=== PATIENT | female | born 1990 | race Caucasian/White ===

== ENCOUNTER 2016-08-19 01:03 | Emergency (ER) | payer SELFPAY ==
[~2016-08-19] VITALS: Ht 160 cm; Wt 63.0 kg
[2016-08-19 01:04] VITALS: BP 128/79; PULSE 86; RESP 16; TEMP 97.9; O2SAT 98
[2016-08-19] MEDS ORDERED: AMOXICILLIN (TRIHYDRATE) 500 MG CAP PO ONE (01:45)
[2016-08-19] MEDS ORDERED: NAPROXEN 500 MG TAB PO ONE (01:45)
[2016-08-19] MEDS ORDERED: DICL50TA3 PO (01:51)
[2016-08-19] MEDS ORDERED: AMOX500T PO (01:51)
--- NOTE | 2016-08-19 01:55 | PD ---
HPI Chief Complaint: Oral / Dental Pain or Problem Time Seen by Provider: 01:51 Travel History International Travel<30 days: No Contact w/Intl Traveler<30days: No Traveled to known affect area: No History of Present Illness HPI 26-year-old white female presents to emergency department with complaints of dental pain. She's had pain in the left lower and right upper maxilla over the last several weeks. She's had problems with her teeth on-and-off for quite some time. She states that she's had open draining abscesses. She alleges she had called the dentist who advised to come to the hospital to get antibiotics before they can work on her teeth. She denies any fever or chills. Pain is moderate. Worse with palpation and chewing. Worse with cold. PFSH Past Medical History Narrative Medical Substance abuse, back injury Diminished Hearing: No Tetanus Vaccination: < 5 Years ?: Not LMP: DOES NOT GET Past Surgical History Narrative Surgical Lower back surgery Social History Alcohol Use: No Tobacco Use: Yes Substance Use: Yes Allergies-Medications (Allergen,Severity, Reaction): Coded Allergies: No Known Allergies (Unverified , 08/19/16) Reported Meds & Prescriptions Reported Meds & Active Scripts Active No Active Prescriptions or Reported Medications Review of Systems Except as stated in HPI: all other systems reviewed are Neg Physical Exam Narrative GENERAL: This is a well-nourished, well-developed patient, in no apparent distress. SKIN: No rashes, ecchymoses or lesions. Warm and dry. Patient has track torres on both upper extremities. HEAD: Atraumatic. Normocephalic. EYES: PERRL, EOMI, no discharge or injection. No scleral icterus. EARS: Clear NOSE: Nasal turbinates appear normal. THROAT: Mucosa pink and moist. Airway patent. The patient has diffuse periodontal disease with multiple, multiple, multiple dental cavities. She has gingival edema without obvious gross abscess. NECK: Trachea midline. supple, moves head freely. LUNGS: Clear to auscultation. CV: Regular in rhythm. ABDOMEN: Soft nontender. EXT: No clubbing cyanosis or edema. Data Data Last Documented VS Vital Signs Date Time Temp Pulse Resp B/P Pulse Ox O2 Delivery O2 Flow Rate FiO2 08/19/16 01:04 97.9 86 16 128/79 98 Orders Naproxen (Naprosyn) (1/17/17 01:45) Amoxicillin (Trimox) (08/19/16 01:45) MDM Medical Decision Making Medical Screen Exam Complete: Yes Emergency Medical Condition: Yes Medical Record Reviewed: Yes Differential Diagnosis MDM: Moderate Differential diagnoses: Dental abscess, dental caries, osteitis, cellulitis Narrative Course Patient is given amoxicillin 500 and Naprosyn 500 mg by mouth. This is dentalgia, dental caries Diagnosis Primary Impression: Dentalgia Additional Impression: Dental caries Patient Instructions: General Instructions Additional Instructions: Rest. [place] gargles. [place] oil on cotton balls. Diclofenac and amoxicillin follow-up with a dentist as soon as possible. And return to the ER if any problems. Med/Other Pt SpecificInfo: Prescription(s) given Scripts Amoxicillin 500 Mg Tab1,000 Mg PO BID #40 TAB Prov:Kavita Rae MD 08/19/[address] 50 Mg Tabdr50 Mg PO TID #21 TAB Prov:Kavita Rae MD 08/19/16 Disposition: 01 DISCHARGE HOME Condition: Stable Bhargav Moscoso Aug 19, 2016 01:55
== END 2016-08-19 03:05 | disposition home or self-care (01) ==
LOC: NEPB 01:03
DX: K02.9 Dental caries, unspecified (principal); Z72.0 Tobacco use
CPT/HCPCS: 99282

== ENCOUNTER 2016-11-10 11:20 | Emergency (ER) | payer OTHER ==
[~2016-11-10] VITALS: Ht 160 cm; Wt 65.0 kg
[~2016-11-10 11:20] MED LIST: AMOX500T PO; DICL50TA3 PO
[2016-11-10 11:21] VITALS: BP 166/84; PULSE 114; RESP 18; TEMP 98.8; O2SAT 98
[2016-11-10 11:37] VITALS: BP 131/78; PULSE 88; PULSE 92; RESP 16; O2SAT 98
[2016-11-10] MEDS ORDERED: SODIUM CHLOR 0.9% 1000 ML INJ 1,000 ML IV ONE (11:45)
[2016-11-10] MEDS ORDERED: SODIUM CHLORIDE 0.9% FLUSH 10 ML FLUSH IVF PRN (11:45)
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
[2016-11-10 12:38] LABS: BLOOD, URINE LARGE (NEG); COMMENT (UR) CULTURE INDICATED; CULTURE IF INDICATED CULTURE INDICATED; GLUCOSE,URINE NEG (NEG); KETONE, URINE NEG (NEG); MUCUS URINE FEW /lpf (OCC); NITRITE,URINE NEG (NEG); SQUAMOUS EPITHELIAL CELL URINE 41 /hpf (0-5)
[2016-11-10 12:39] LABS: URINE COLOR RED (YELLW/STRAW)
[2016-11-10 12:40] LABS: BACTERIA, URINE FEW /hpf
--- NOTE | 2016-11-10 12:51 | RADRPT ---
EXAM DATE/TIME: 11/10/2016 12:12 [facility] COMPARISON: No previous studies available for comparison. INDICATIONS : Chest pains midsternal with shortness of breath. MEDICAL HISTORY : None. SURGICAL HISTORY : None. ENCOUNTER: Initial ACUITY: 1 day PAIN SCORE: 08/12 LOCATION: Bilateral chest FINDINGS: A single view of the chest demonstrates the lungs to be symmetrically aerated without evidence of mas s, infiltrate or effusion. The cardiomediastinal contours are unremarkable. Osseous structures are intact. CONCLUSION: No acute disease. Rito Davis MD on November 10, 2016 at 12:50 Board Certified Radiologist. This report was verified electronically.
[2016-11-10 13:35] LABS: BICARBONATE 27.6 MEQ/L (21.0-32.0); POTASSIUM 4.1 MEQ/L (3.5-5.1)
[2016-11-10 13:53] LABS: AUTOMATED NEUTROPHIL # 7.2 TH/MM3 (1.8-7.7); BASOPHIL # 0.1 TH/MM3 (0-0.2); BASOPHIL % 0.6 % (0.0-2.0); EOSINOPHIL # 0.1 TH/MM3 (0-0.4); EOSINOPHIL % 0.9 % (0.0-4.0); HEMO FLAGS DIFF FINAL; LYMPH % 26.6 % (9.0-44.0); LYMPHOCYTE # 2.9 TH/MM3 (1.0-4.8); MEAN CELL VOLUME 84.7 FL (80.0-100.0); MEAN CORPUSCULAR HEMOGLOBIN 27.8 PG (27.0-34.0); MEAN CORPUSCULAR HGB CONC 32.8 % (32.0-36.0); MONO % 6.8 % (0.0-8.0); NEUT % 65.1 % (16.0-70.0); PLATELET COUNT 363 TH/MM3 (150-450); RED BLOOD COUNT 4.84 MIL/MM3 (4.00-5.30); RED CELL DISTRIBUTION WIDTH 19.4 % (11.6-17.2)
[2016-11-10 15:05] LABS: CHLAMYDIA PCR NOT DETECTED (NOT DETECT); NEISSERIA PCR NOT DETECTED (NOT DETECT)
== END 2016-11-10 14:26 | disposition home or self-care (01) ==
LOC: NEPD 11:20
DX: N94.6 Dysmenorrhea, unspecified (principal); J06.9 Acute upper respiratory infection, unspecified; N39.0 Urinary tract infection, site not specified; B96.89 Other specified bacterial agents as the cause of diseases classified elsewhere
CPT/HCPCS: 71010; 80048; 81001; 84703; 85025; 87086; 87210; 87491; 87591; 99284

== ENCOUNTER 2016-12-03 12:35 | Emergency (ER) | payer SELFPAY ==
[~2016-12-03] VITALS: Ht 162.6 cm; Wt 70.0 kg
[2016-12-03 12:36] VITALS: BP 125/76; PULSE 86; RESP 14; TEMP 98.3; O2SAT 98
--- NOTE | 2016-12-03 12:40 | PD ---
Physical Exam Time Seen by Provider: 12:39 Narrative 26 y/o female presents for evaluation of a painful mass on the left breast for the past few days, progressively getting worse. Vital signs reviewed. Seen at triage desk. Awaiting bed placement. Data Data Last Documented VS Vital Signs Date Time Temp Pulse Resp B/P Pulse Ox O2 Delivery O2 Flow Rate FiO2 12/03/16 12:36 98.3 86 14 125/76 98 MDM Medical Record Reviewed: Yes Supervised Visit with GANESH: No Scripts No Active Prescriptions or Reported Meds Baljinder Rubio December 03, 2016 12:40
[2016-12-03] MEDS ORDERED: MOTR200T4 PO (13:48)
--- NOTE | 2016-12-03 13:54 | PD ---
HPI Chief Complaint: Lump, Cyst, Hernia Time Seen by Provider: 13:48 Travel History International Travel<30 days: No Contact w/Intl Traveler<30days: No Traveled to known affect area: No History of Present Illness HPI 26-year-old female presents to the emergency Department with complaint of a large painful lump to her left breast that she noticed within the past few days and has been getting bigger. Denies fever, vomiting. Denies nipple discharge, skin change, skin dimpling. Says she's been having to pad of her right breast because the lump is so large. Has not taken any medications or tried any treatments to alleviate her symptoms. No known allergies. Has no other medical complaints. No other modifying factors or associated signs and symptoms. PFSH Past Medical History Diminished Hearing: No ?: Not LMP: 11/2016 Social History Alcohol Use: No Tobacco Use: Yes Substance Use: No Allergies-Medications (Allergen,Severity, Reaction): Coded Allergies: No Known Allergies (Unverified , 12/03/16) Reported Meds & Prescriptions Reported Meds & Active Scripts Active Ibuprofen 800 Mg Tab 800 Mg PO Q6HR PRN Reported Motrin Ib (Ibuprofen) 200 Mg Tab 200 Mg PO Q4H PRN Review of Systems Except as stated in HPI: all other systems reviewed are Neg Physical Exam Narrative GENERAL: Well-nourished, well-developed female patient, in no acute distress; afebrile, nontoxic-appearing SKIN: Warm and dry. HEAD: Atraumatic. Normocephalic. EYES: Pupils equal and round. No scleral icterus. No injection or drainage. ENT: Mucosa pink and moist. Airway patent. NECK: Trachea midline. BREAST: Palpable mass to the left breast at approximately the 9:00 to 2:00 o' clock position; areas with tenderness on palpation; breast is without erythema. No nipple discharge. No skin dimpling. No left axillary lymphadenopathy. CARDIOVASCULAR: Regular rate. RESPIRATORY: No accessory muscle use. GASTROINTESTINAL: Flat. MUSCULOSKELETAL: No obvious deformities. No clubbing. No cyanosis. No edema. NEUROLOGICAL: Awake and alert. Oriented 3. No obvious cranial nerve deficits. Motor grossly within normal limits. Normal speech. PSYCHIATRIC: Appropriate mood and affect; insight and judgment normal. Data Data Last Documented VS Vital Signs Date Time Temp Pulse Resp B/P Pulse Ox O2 Delivery O2 Flow Rate FiO2 12/03/16 12:36 98.3 86 14 125/76 98 Orders Us Breast Unilateral (12/03/16 14:16) Mandatory Outpatient Referral (12/03/16 17:22) [facility] Medical Decision Making Medical Screen Exam Complete: Yes Emergency Medical Condition: Yes Medical Record Reviewed: Yes Differential Diagnosis Abscess, cyst, nonspecific mass Narrative Course 26-year-old female with probable left breast mass. She is afebrile nontoxic appearing. Denies fever, vomiting. Left breast ultrasound ordered. Left breast ultrasound concludes: Very insensitive study for screening for malignancy. Clinical correlation and mammographic correlation is needed. 2. Focal 3 cm area of differing echogenicity within the 12:00 1:00 position 2 cm in the nipple. This is a nonspecific finding. I cannot exclude a mass. Continued followup needed. 3. No discrete abscess. Mandatory referral placed for patient to follow up outpatient. Ibuprofen prescribed for home. Instructed patient to follow up outpatient and discuss mandatory outpatient referral. Patient verbalizes understanding and agreement with treatment plan. Patient is medically cleared and stable for discharge. Discussed reasons to return to the emergency department. Instructed patient to follow up with primary care provider. Patient agrees with treatment plan. The patients vital signs are stable and the patient is stable for outpatient follow- up and treatment. Patient discharged home, stable and in no acute distress. Diagnosis Primary Impression: Left breast mass Referrals: Primary Care Physician Patient Instructions: Breast Mass (ED), General Instructions Departure Forms: Tests/Procedures, Work Release Enter return to work date: December 08, 2016 Additional Instructions: Ibuprofen or Tylenol as instructed not needed for pain and inflammation Follow-up outpatient with mandatory referral Return to the emergency department immediately with worsening of symptoms Med/Other Pt SpecificInfo: Prescription(s) given Scripts Ibuprofen 800 Mg [id number] Mg PO Q6HR PRN (PAIN) #30 TAB Ref 0 Prov:Norma Lerma 12/03/16 Disposition: 01 DISCHARGE HOME Condition: Stable Norma Lerma December 03, 2016 13:54
--- NOTE | 2016-12-03 17:18 | RADRPT ---
EXAM DATE/TIME: 12/03/2016 15:13 [facility] COMPARISON: No previous studies available for comparison. INDICATIONS : Left breast abscess. MEDICAL HISTORY : Left breast palpable lump. SURGICAL HISTORY : Lumbar spine fusion. ENCOUNTER: Initial ACUITY: 1 week PAIN SCORE: 7/10 LOCATION: Left breast. FINDINGS: Sonographic evaluation of the left breast in the area of palpable concern in the 12 to 1: 00 position was performed. This was performed to evaluate for abscess. This is a very insensitive ravi dy for screening for malignancy. Heterogeneity is observed. No discrete abscess appreciated. There is a 3 cm area of slightly differing echogenicity within the 12:00 position 2 cm from the nipple. No sh adowing. CONCLUSION: 1. Very insensitive study for screening for malignancy. Clinical correlation and mammographic correla tion is needed. 2. 3. Focal 3 cm area of differing echogenicity within the 12: 4. 00 1:00 position 2 cm in the nipple. This is a nonspecific finding. I cannot exclude a mass. Tian nued followup needed. 5. No discrete abscess. Jonah Huang Jr., MD on December 03, 2016 at 17:13 Board Certified Radiologist. This report was verified electronically.
[2016-12-03] MEDS ORDERED: IBUP800T23 PO (17:21)
== END 2016-12-03 17:43 | disposition home or self-care (01) ==
LOC: NEPK 12:35
DX: N63 Unspecified lump in breast (principal)
CPT/HCPCS: 76642